=== PATIENT | female | born 1950 | race Caucasian/White ===

== ENCOUNTER 2017-01-17 18:46 | Emergency (ER) | payer MEDICARE, MEDICAID ==
[~2017-01-17] VITALS: Ht 162.6 cm; Wt 56.7 kg
[2017-01-17 19:01] VITALS: BP 105/65
== END 2017-01-17 19:40 | disposition home or self-care (01) ==
LOC: ER 18:53
DX: L73.9 Follicular disorder, unspecified (principal); I10 Essential (primary) hypertension
CPT/HCPCS: 99283; A4606; Q0163; Z7610